=== PATIENT | female | born 1980 | race Caucasian/White ===

== ENCOUNTER 2020-03-17 03:19 | Emergency (ER) | payer SELFPAY ==
[~2020-03-17] VITALS: Ht 162.6 cm; Wt 90.2 kg
[~2020-03-17 03:19] MED LIST: EPINEPHrine 1:10,000 [1 MG/10 ML] SYRINGE IVP ONE; SODIUM BICARBONATE [ADULT] 8.4% 50 MEQ/50 ML SYRINGE IVP ONE
[2020-03-17] MEDS ORDERED: SODIUM BICARBONATE [ADULT] 8.4% 50 MEQ/50 ML SYRINGE IVP ONE (03:23)
[2020-03-17] MEDS ORDERED: EPINEPHrine 1:10,000 [1 MG/10 ML] SYRINGE IVP ONE (03:23)
[2020-03-17 03:35] VITALS: BP 32/18
== END 2020-03-17 06:37 | disposition expired ==
LOC: EMS 03:22
DX: I46.9 Cardiac arrest, cause unspecified (principal)
CPT/HCPCS: 92950; J0171; J3490